=== PATIENT | male | born 1985 ===

== ENCOUNTER 2016-12-02 20:41 | Emergency (ER) | payer SELFPAY ==
--- NOTE | 2016-12-02 21:56 | RAD ---
Indication: Dizziness. Single frontal view of the chest performed at 2140 hours was reviewed. No prior study is available for comparison. No mediastinal shift is noted. Heart is of normal size and configuration. Lung singh appear clear. IMPRESSION: NO ACTIVE CARDIOPULMONARY DISEASE IS NOTED.
[2016-12-02 22:07] LABS: Hematocrit 43 % (42-52); Hemoglobin 14.6 g/dl (14.0-18.0); Mean Corpuscular HGB Conc 34 g/dl (31-36); Mean Corpuscular Hemoglobin 31 pg (27-31); Mean Corpuscular Volume 92 fL (80-94); Mean Platelet Volume 8 um3 (7.4-10.4); Red Blood Count 4.67 10^6/ul (4.0-5.4); Red Cell Distribution Width 13 % (10.5-15); White Blood Count 8.4 10^3/ul (3.5-10.8)
[2016-12-02 22:22] LABS: ALT 13 U/L (7-52); Albumin 4.2 g/dL (3.2-5.2); Alkaline Phosphatase 52 U/L (34-104); BUN/Creatinine Ratio 10.9 (8-20); Blood Urea Nitrogen 13 mg/dL (6-24); CO2 Carbon Dioxide 26 mmol/L (22-32); Calcium 9.3 mg/dL (8.6-10.3); Chloride 103 mmol/L (101-111); EGFR African American 91.7 (>60); EGFR Non-African American 71.3 (>60); Globulin 2.8 g/dL (2-4); Glucose 121 mg/dL (70-100); Magnesium 1.9 mg/dL (1.9-2.7); Sodium 137 mmol/L (133-145)
--- NOTE | 2016-12-02 22:26 | RAD ---
Indication: Dizziness, near syncope. CT of the brain was performed without IV contrast. Ventricular structures are midline. No midline shift is noted. The extra-axial spaces are unremarkable. There is no evidence of intracranial mass or hemorrhage. No other high or low density lesions identified. Mastoid air cells and paranasal sinuses are unremarkable. IMPRESSION: No intracranial mass or hemorrhage is noted.
[2016-12-02 22:36] VITALS: BP 112/63
[2016-12-02 22:50] LABS: Benzodiazepine Urine Screen None Detected (None Detect)
[2016-12-02 22:51] LABS: TSH (Thyroid Stimulating Horm) 0.85 mcIU/mL (0.34-5.60)
--- NOTE | 2016-12-02 23:50 | ED ---
Pavan Montague Aidan, scribed for Triston Springer on 12/02/16 at 2151 . Syncope/Near Syncope - HPI Summary HPI Summary: 31 y/o male presents to the ED via transfer from the Urgent Care at 1300 with a complaint of an acute, moderate episode of syncope that occurred minutes after he received a puncture wound from a metal tethering chord. His last tetanus shot was within 5 years, according to the patient. All he recalls from the first episode was losing his vision before blacking out. During the onset of the event, he felt a strange sensation/taste in his mouth. According to the patients friend, after passing out, his body tensed up and his veins popped out. Just before heading to the Urgent Care, he had a second episode of syncope , during which he did not fully lose consciousness. The first episode lasted roughly 3 minutes, while the second lasted about 5 minutes. Associated symptoms include numbness in the right hand that is aggravated by palpating the right arm , CP, and SOB. At Urgent Care, he received 324mg of ASA. Pt denies any Hx of seizures, anxiety, or panic attacks. - History Of Current Complaint Chief Complaint: EDDysrhythmPalp Time Seen by Provider: 12/02/16 21:01 Hx Obtained From: Patient, Family/Braiding Operator Onset/Duration: Sudden Onset, Lasting Minutes, Resolved - syncopal events are resolved, however, the patient still experiences intermittent episodes of righ hand tingling aggravated by palpating the right arm Timing: Intermittent Episode Lasting - first syncopal event lasted 3 minutes, while the second lasted 5 minutes according to the patient Context: Unwitnessed - second event lasting 5 minutes, Witnessed - first event lasting 3 minutes Activity At Onset: Other - Pt was working on his boat during the first event and getting ready to go to the Urgent Care during the second event Associated Head Trauma: No Aggravating Factor(s): Other - unknown Associated Signs And Symptoms: Chest Pain, Shortness Of Breath, Other - numbness in the right hand aggravated by palpating the right arm, LOC during first event, body tensing up during first event, Frequency: Episodes x___ - x2, Episodes Lasting ____ (in Mins/Days/Weeks/Years) - 3 minutes (first episode), then 5 minutes (second episode) - Risk Factors Cardiac Risk Factors: Smoking, Family History - of diabetes Dysrhythmia Risk Factors: Negative - Allergies/Home Medications Allergies/Adverse Reactions: Allergies Allergy/AdvReac Type Severity Reaction Status Date / Time No Known Allergies Allergy Verified 12/02/16 20:48 PMH/Surg Hx/FS Hx/Imm Hx Infectious Disease History: No Infectious Disease History: Denies: Traveled Outside the [place] in Last 30 Days - Family History Known Family History: Positive: Diabetes, Other - cancer - Social History Occupation: Employed Full-time Lives: Alone Alcohol Use: Weekly Substance Use Type: Reports: Marijuana Substance Use Comment - Amount & Last Used: DAILY Smoking Status (MU): Heavy Every Day Tobacco Smoker Type: Cigars Amount Used/How Often: 1 pack per 3 days Review of Systems Constitutional: Negative Eyes: Negative ENT: Negative Positive: Chest Pain. Negative: Palpitations Positive: Shortness Of Breath Gastrointestinal: Negative Genitourinary: Negative Musculoskeletal: Negative Positive: Other - small puncture wound from teather cord.. Negative: Rash, Bruising Positive: Numbness - numbness at right hand aggravated by palpating the right arm, Syncope - 1x with associated LOC, 2x total, strange taste in his mouth just prior to passing out during first episode. Negative: Headache, Weakness, Paresthesia, Slurred Speech Psychological: Normal All Other Systems Reviewed And Are Negative: Yes Physical Exam Triage Information Reviewed: Yes Vital Signs On Initial Exam: Initial Vitals Temp Pulse Resp BP Pulse Ox 97.6 F 65 15 113/73 100 12/02/16 20:46 12/02/16 20:46 12/02/16 20:46 12/02/16 20:46 12/02/16 20:46 Vital Signs Reviewed: Yes Appearance: Positive: Well-Appearing, No Pain Distress Skin: Positive: Warm, Skin Color Reflects Adequate Perfusion, Dry Head/Face: Positive: Normal Head/Face Inspection Eyes: Positive: EOMI, CHELE ENT: Positive: Normal ENT inspection Neck: Positive: Supple, Nontender Respiratory/Lung Sounds: Positive: Clear to Auscultation, Breath Sounds Present Cardiovascular: Positive: Normal, RRR, Pulses are Symmetrical in both Upper and Lower Extremities Abdomen Description: Positive: Nontender, Soft Bowel Sounds: Positive: Present Musculoskeletal: Positive: Normal, Strength/ROM Intact Neurological: Positive: Normal, Sensory/Motor Intact, Alert, Oriented to Person Place, Time Psychiatric: Positive: Normal, Affect/Mood Appropriate AVPU Assessment: Alert - Mena Coma Scale Coma Scale Total: 15 Diagnostics - Vital Signs Vital Signs Temp Pulse Resp BP Pulse Ox 12/02/16 21:05 78 12/02/16 21:00 65 99 12/02/16 20:46 97.6 F 65 15 113/73 100 - Laboratory Lab Results: Lab Results 12/02/16 Range/Units 21:04 POC Glucose (mg/dL) 123 H (74-106) mg/dL Result Diagrams: 12/02/16 20:00 12/02/16 23:05 Lab Statement: Any lab studies that have been ordered have been reviewed, and results considered in the medical decision making process. - Radiology CHEST X-RAY Xray Interpretation: No Acute Changes - IMPRESSION: NO ACTIVE CARDIOPULMONARY DISEASE IS NOTED. Radiology Interpretation Completed By: Radiologist - EKG EKG 2048 Cardiac Rate: NL - 75 BPM EKG Rhythm: Sinus Rhythm EKG Interpretation: NORMAL SINUS RHYTHM Course/Dx Course Of Treatment: 31 y/o male presents with a complaint of 2 episodes of syncope (1 with associated LOC, no associated head trauma). Associated symptoms include CP, SOB, and numbness in the right hand caused by palpating the right arm. Labs and imaging were reviewed. The patient will be diagnosed with dizziness and near-syncopal episode. He will be discharged. - Diagnoses Provider Diagnoses: Dizziness, Near syncope Discharge - Discharge Plan Condition: Stable Disposition: HOME Discharge Disposition Comment: Please follow up with your primary care provider within 3 days. Patient Education Materials: Dizziness (ED), Near Syncope (ED) Referrals: No Primary Care Phys,NOPCP [Primary Care Provider] - The documentation as recorded by the Pavan henao Aidan accurately reflects the service I personally performed and the decisions made by Gian tran Emmanuel.
== END 2016-12-03 00:43 | disposition home or self-care (01) ==
LOC: ED 20:41
DX: R42 Dizziness and giddiness (principal); R55 Syncope and collapse; R07.89 Other chest pain; R06.02 Shortness of breath; S41.131A Puncture wound without foreign body of right upper arm, initial encounter; W26.9XXA Contact with unspecified sharp object(s), initial encounter; Y92.9 Unspecified place or not applicable; Y93.89 Activity, other specified; F12.90 Cannabis use, unspecified, uncomplicated; F17.210 Nicotine dependence, cigarettes, uncomplicated; Z04.8 Encounter for examination and observation for other specified reasons
CPT/HCPCS: 36415; 70450; 71010; 80053; 80307; 83735; 84443; 84484; 85025; 85610; 85730; 93005; 99283